=== PATIENT | male | born 1950 | race Caucasian/White ===

== ENCOUNTER 2018-10-17 06:39 | Inpatient (IN) | payer MEDICARE, OTHER ==
--- NOTE | 2018-10-17 06:58 | ED ---
Psychiatric Complaint - HPI Summary HPI Summary: Pt. is a 68 y.o male who presents to the ER for a psychiatric evaluation. Pt. called 911 this morning stating he wanted to kill himself. Pt. states he then realized it was a bad idea. A gun reportedly found at pt.'s house per police. Pt. denies mental health hx. Pt. states he has been having a lot of health issues lately. Stating he recently had a heart stent placed and a carotid endarterectomy. Sxs are severe in severity. No current modifying factors. Pt. had already written a suicide note to his family. - History Of Current Complaint Chief Complaint: EDMentalHealth Time Seen by Provider: 10/17/18 06:55 Hx Obtained From: Patient, Other: - police - Allergies/Home Medications Allergies/Adverse Reactions: Allergies Allergy/AdvReac Type Severity Reaction Status Date / Time No Known Allergies Allergy Verified 10/17/18 06:44 PMH/Surg Hx/FS Hx/Imm Hx Previously Healthy: Yes Infectious Disease History: No Infectious Disease History: Denies: Traveled Outside the [place] in Last 30 Days - Social History Occupation: Retired Lives: With Family Review of Systems Constitutional: Negative Cardiovascular: Negative Respiratory: Negative Neurological: Negative Positive: Depressed All Other Systems Reviewed And Are Negative: Yes Physical Exam Triage Information Reviewed: Yes Vital Signs On Initial Exam: Initial Vitals Temp Pulse Resp BP Pulse Ox 97.9 F 68 16 150/92 97 10/17/18 06:40 10/17/18 06:40 10/17/18 06:40 10/17/18 06:40 10/17/18 06:40 Vital Signs Reviewed: Yes Appearance: Positive: Well-Appearing - Pt. sitting in chair in NAD. Poor eye contact. Skin: Positive: Warm, Dry Head/Face: Positive: Normal Head/Face Inspection Eyes: Positive: Normal, EOMI Neck: Positive: Supple Musculoskeletal: Positive: Normal, Strength/ROM Intact Neurological: Positive: Normal, Alert, Oriented to Person Place, Time, CN Intact II-III Psychiatric: Positive: Affect/Mood Appropriate Diagnostics - Vital Signs Vital Signs Temp Pulse Resp BP Pulse Ox 10/17/18 06:40 97.9 F 68 16 150/92 97 - Laboratory Result Diagrams: 10/17/18 07:07 10/17/18 07:07 Lab Statement: Any lab studies that have been ordered have been reviewed, and results considered in the medical decision making process. Course/Dx - Course Course Of Treatment: Pt. presenting with SI. Pt. medically cleared. Pt. evalauated by and psychiatry consulted. Pt. will be admitted to the [facility] for further care and evaluation. - Differential Dx/Clinical Impression Differential Diagnosis/HQI/PQRI: Positive: Depression, Suicidal Ideation Provider Diagnosis: Depression Discharge - Sign-Out/Discharge Documenting (check all that apply): Patient Departure Patient Received Moderate/Deep Sedation with Procedure: No - Discharge Plan Condition: Stable [facility] [place]errals: No Primary Care Phys,NOPCP [Primary Care Provider] - - Billing Disposition and Condition Condition: STABLE Disposition: Psychiatric Facility [facility] [place]
[2018-10-17 07:20] LABS: ABS Basophils 0.1 10^3/ul (0-0.2); ABS Eosinophils 0.2 10^3/ul (0-0.6); ABS Lymphocytes 1.1 10^3/ul (1.0-4.8); ABS Monocytes 0.5 10^3/ul (0-0.8); Eosinophil % 3.6 %; Hematocrit 43 % (42-52); Hemoglobin 14.7 g/dL (14.0-18.0); Lymphocyte % 18.4 %; Mean Corpuscular HGB Conc 34 g/dL (31-36); Mean Corpuscular Hemoglobin 31 pg (27-31); Mean Corpuscular Volume 90 fL (80-94); Mean Platelet Volume 7.1 fL (7.4-10.4); Nucleated Red Blood Cells % 0.1; Platelet Count 326 10^3/uL (150-450); Red Blood Count 4.72 10^6 /uL (4.18-5.48); Red Cell Distribution Width 15 % (10-15); White Blood Count 5.8 10^3/uL (3.5-10.8)
[2018-10-17 07:32] LABS: ALT 33 U/L (7-52); AST 33 U/L (13-39); Albumin 4.7 g/dL (3.2-5.2); Albumin/Globulin Ratio 1.9 (1-3); Alkaline Phosphatase 88 U/L (34-104); Anion Gap 9 mmol/L (2-11); BUN/Creatinine Ratio 16.9 (8-20); Blood Urea Nitrogen 14 mg/dL (6-24); CO2 Carbon Dioxide 24 mmol/L (22-32); Calcium 9.2 mg/dL (8.6-10.3); Chloride 98 mmol/L (101-111); EGFR African American 111.5 (>60); EGFR Non-African American 92.1 (>60); Globulin 2.5 g/dL (2-4); Glucose 128 mg/dL (70-100); Potassium 3.9 mmol/L (3.5-5.0); Sodium 131 mmol/L (135-145); Total Protein 7.2 g/dL (6.4-8.9)
[2018-10-17 08:11] LABS: Urine Appearance Cloudy; Urine Bilirubin Negative (Negative); Urine Blood Negative (Negative); Urine Color Yellow; Urine Glucose Negative (Negative); Urine Ketones Negative (Negative); Urine Nitrite Negative (Negative); Urine Protein Negative (Negative); Urine Urobilinogen Negative (Negative)
[2018-10-17 08:20] LABS: Alcohol < 10 mg/dL (<10); Salicylate < 2.50 mg/dL (<30)
[2018-10-17 08:27] LABS: Urine Benzodiazepine Screen None Detected (None Detect); Urine Opiates Screen None Detected (None Detect)
[2018-10-17 08:35] LABS: TSH (Thyroid Stimulating Horm) 2.42 mcIU/mL (0.34-5.60)
[2018-10-17] MEDS ORDERED: Al Hydrox/Mg Hydrox/Simet LIQ* 30 ML UDC PO PRN (10:52)
[2018-10-17 11:45] LABS: Acetaminophen < 15 mcg/mL
[2018-10-17] MEDS: Saline NASAL SPRAY 0.65%* BTL BOTH NARES PRN (15:41)
[2018-10-17] MEDS: Atorvastatin* 80 MG TAB PO SCH (17:42)
--- NOTE | 2018-10-17 18:24 | HP ---
PSYCHIATRIC HISTORY AND PHYSICAL: DATE OF ADMISSION: 10/17/18 JUSTIFICATION FOR ADMISSION: The patient is in need of 24-hour supervision and care secondary to giacomo cidal ideations. CHIEF COMPLAINT: "The only reason I'm here is that the deputies had to fill certain criteria and charo ing me." HISTORY OF PRESENT ILLNESS: The patient is a 68-year-old white male with a recent history of myocardial infarction in January 2018, as well as several other medical comorbidities, who was brou ght to the hospital on a 9.41 involuntary status by the [facility]'s Department followin g a 911 call placed by the patient to the authorities stating that he had a gun and the intention of ending his own life. Prior to the Nursing Coordinator's arrival at his home, he allegedly tried to call them maximus k and abort their visit, saying that he had reconsidered and was no longer suicidal. However, they w ere already en route and took him to the hospital. After arriving, the patient's Britni reported to the crisis driver education road instructor that the patient has been talking about suicidal ideas for about a week now a nd she feels that he is depressed. She was trying to recommend that he come to his doctor to talk ab out it. She notes that he has several active medical problems and that his quality of life has dimin ished since his myocardial infarction in January 2018. When I met with the patient, he feels that it is a mistake to admit him here. He states that he has totally reconsidered suicide and decided that it is not for him. He does admit to having a gun at home which is a pistol; however, the Nursing Coordinator con fiscated it during the visit to his house. He also acknowledges being suicidal for a week, feeling m ostly that his medical problems are unlikely to improve. He had left a detailed suicide note to his family indicating his reasoning for wanting to end his life and again it is mostly related to his med ical problems. Back in January 2018, during his heart attack, he was hospitalized at [place]. Subs equent to that, he has also been hospitalized for bleeding ulcers as well as bilateral carotid endart erectomy procedures. The patient is tired of going to the hospital and states that he cannot do many of the things that he used to enjoy. One particularly stressful medical issue is that he has experi enced right eye blindness, which has forced him to rely on his left eye which causes fatigue. For th is reason, he is no longer able to drive long distances or shoot his handgun at the range accurately. Interestingly, the patient denies neurovegetative symptoms of depression with the exception of guil t. He does indicate that he is guilty for being here, but he denied sleep disturbance, anhedonia, en ergy problems, concentration loss, appetite disturbance, or psychomotor agitation or retardation. He is insisting that his suicidal ideation has resolved at this time. The patient denies any history of psychosis or korin. PSYCHIATRIC HISTORY: The patient has no prior history of suicidal ideations or attempts. He has no prior history of treatment for depression, counseling, or psychiatric medications, and no psychiatric hospitalizations. He denies a history of abuse or neglect while growing up, and he denies a history of traumatic brain injury. SUBSTANCE ABUSE HISTORY: The patient quit tobacco in January 2018. However, previous to this he alberto d a 40-year history of 1 pack per day. He also quit alcohol in January 2018, and he previously dran k 4 to 6 beers per day. He denies any history of DWIs or need for rehabilitation. MEDICAL HISTORY: Extensive and is significant for coronary artery disease with stenting and myocardi al infarction in January 2018. He has had bleeding peptic ulcers, bilateral carotid endarterectomy, epistaxis, hypertension, gastroesophageal reflux disease, hyperlipidemia, and right eye blindness. MEDICATIONS: Include: 1. Plavix 75 mg p.o. daily. 2. Pantoprazole 40 mg twice daily. 3. Aspirin 81 mg daily. 4. Metoprolol succinate 25 mg daily. 5. Losartan 50 mg daily. 6. Amlodipine 10 mg daily. 7. Atorvastatin 80 mg nightly. 8. Saline nasal spray as needed for congestion. 9. Zyrtec 10 mg daily. 10. Afrin nasal decongestant up to 2 times a day as needed for nasal congestion. FAMILY HISTORY: The patient's mother had severe depression and 1 suicide attempt via overdose, for w hich she was psychiatrically hospitalized. SOCIAL HISTORY: The patient was born in [facility] to a father who was in the . He was raised in [place] in an intact family. He was 1 of 2 children, having an older brother who is 3 years older and still alive. The patient lives with his in [place]. They share a 42-yea r-old son and a 50- year-old daughter as well as 2 grand kids. The patient has been twice. H is first marriage ended in a divorce after only 1 year. 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 Hobbies include puzzles, reading the paper, a nd doing Sudoku. 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 For 38 years, he worked in the [employer] and now has a pension as well as Social Security income. He is not cheondoism nor spiritual, although he believes in God. He has no significant history of legal problems. REVIEW OF SYSTEMS: The patient is endorsing some double vision, but denies headache. He also denies sore throat, cough, chest pain, difficulty breathing. He denies abdominal pain, nausea, vomiting, d iarrhea, or constipation, although he has had some recent heartburn. He denies difficulty ambulatin g, enlarged lymph nodes, fever, rashes, changes in weight. PHYSICAL EXAMINATION VITAL SIGNS: Blood pressure 138/77, heart rate is 70, respiratory rate 18, temperature 97.9 degrees Fahrenheit, oxygen saturations are 100% on room air. HEENT: Head is normocephalic, atraumatic. NECK: Supple. CHEST: Clear to auscultation bilaterally. CARDIAC: Exam reveals normal heart sounds. ABDOMEN: Soft and nontender. MUSCULOSKELETAL: Reveals no sign of edema. SKIN: Warm and dry. NEUROLOGICAL: He is grossly intact with no focal deficits. LAB DATA: Complete blood count is within normal limits. Complete metabolic panel shows glucose sli ghtly elevated at 128. Urinalysis is within normal limits. Urine drug screen is negative for all mistry bstances tested. MENTAL STATUS EXAM: The patient is an aging bearded white male who is clean, dressed in street cloth ing. He is clean, well groomed, makes fairly good eye contact. Speech has a normal rate, tone, and volume. Mood would appear to be euthymic with full affect. Thought process is linear, goal directed . Thought content is significant for his desire to be discharged from the hospital. He is denying s uicidal or homicidal ideations. Insight and judgment are limited given his refusal to sign into the hospital despite his suicide note. Cognitively, he is awake and alert with what would appear to be a n average intellect. DIAGNOSES: [place] I: Adjustment disorder with depressed mood. Alcohol use disorder, in sustained jose ssion. [place] II: Deferred. IMPRESSION: The patient is a 68-year-old white male with no psychiatric history, who suffer ed a heart attack in January 2018 as well as multiple other medical problems subsequently, who was b rought to the hospital via the police on a 9.41 legal status after calling 911 and threatening suicid e. He had a gun in his possession as well as a suicide note and although he has retracted his suicid al sentiments it was felt that he was not safe for discharge, and he is therefore admitted on an invo luntary status. At this time, the patient is denying neurovegetative symptoms of depression and so I do not believe that antidepressant therapy is warranted. However, we will need further collateral i nformation from his outpatient providers as well as his in order to stratify his risk. PLAN: The patient is admitted to the adult behavioral health unit and placed on q. 15 minute checks for his own safety. We will observe him for safety and encourage him to participate in all milieu ac tivities. We will be reaching out to his for collateral information and we will try to set him up with appropriate outpatient services. I understand that the weapon has been removed from his poss ession already. [id number]/[facility] #: [id number]
[2018-10-17] MEDS: Oxymetazoline 0.05% NASAL SPR* 15 ML BTL BOTH NARES PRN (21:08)
[2018-10-17] MEDS: Zolpidem TAB* 5 MG PO PRN (21:15)
[2018-10-17] MEDS: Pantoprazole TAB * 40 MG TAB PO SCH (21:15)
[2018-10-17] MEDS: Cetirizine* 10 MG TAB PO SCH (21:15)
[2018-10-17] MEDS: Losartan TAB* 25 MG PO SCH (21:15)
[2018-10-17] MEDS: Clopidogrel TAB* 75 MG PO SCH (21:45)
[2018-10-18] MEDS: Acetaminophen TAB* 325 MG PO PRN (05:40)
[2018-10-18 07:45] LABS: HDL Cholesterol 76.2 mg/dL
[2018-10-18] MEDS: Metoprolol Succinate XL TAB* 25 MG PO SCH (08:41)
[2018-10-18] MEDS: amLODIPine TAB* 5 MG PO SCH (08:41)
[2018-10-18] MEDS: Aspirin EC TAB* 81 MG TAB.EC PO SCH (08:42)
[2018-10-18] MEDS: Pantoprazole TAB * 40 MG TAB PO SCH ×2 (08:42→21:00)
[2018-10-18] MEDS: Saline NASAL SPRAY 0.65%* BTL BOTH NARES PRN ×2 (09:56→15:56)
[2018-10-18] MEDS: Atorvastatin* 80 MG TAB PO SCH (18:42)
[2018-10-18] MEDS: Oxymetazoline 0.05% NASAL SPR* 15 ML BTL BOTH NARES PRN (20:42)
[2018-10-18] MEDS: Cetirizine* 10 MG TAB PO SCH (21:00)
[2018-10-18] MEDS: Clopidogrel TAB* 75 MG PO SCH (21:01)
[2018-10-18] MEDS: Losartan TAB* 25 MG PO SCH (21:01)
[2018-10-18] MEDS: Zolpidem TAB* 5 MG PO PRN (21:03)
[2018-10-19] MEDS: Acetaminophen TAB* 325 MG PO PRN (02:49)
[2018-10-19] MEDS: hydrOXYzine HCL TAB* 50 MG PO PRN (02:49)
[2018-10-19] MEDS: amLODIPine TAB* 5 MG PO SCH (07:46)
[2018-10-19] MEDS: Saline NASAL SPRAY 0.65%* BTL BOTH NARES PRN ×2 (07:46→18:54)
[2018-10-19] MEDS: Metoprolol Succinate XL TAB* 25 MG PO SCH (07:46)
[2018-10-19] MEDS: Aspirin EC TAB* 81 MG TAB.EC PO SCH (07:46)
[2018-10-19] MEDS: Pantoprazole TAB * 40 MG TAB PO SCH ×2 (07:46→21:25)
--- NOTE | 2018-10-19 12:45 | PN ---
Subjective - Subjective Date of Service: 10/19/18 Service Type: 76068 Hosp care 15 min low complexity Subjective: Devi continues to deny SI. He acknowledges that he has many health problems and fears that they may get worse but he no longer thinks of suicide as an answer. "I have two kids and two grandkids. I think it would hurt them." He is agreeable with having his Britni come to the unit for a family meeting. Staff indicates that he is needy at times but adherent with milieu expectations. Objective - General Observations Appearance: Well Groomed Appears Stated Age: Yes Stature: WNL Posture: WNL Eye Contact: Average Behavior/Activity: WNL - Interaction Observations Attitude Towards Examiner: Cooperative Stated Mood: Euthymic Affect: Full Speech Pattern/Tone: Clear, Appropriate, Normal Volume Thought Process: Coherent Perception: WNL Thought Content: WNL Hallucination Type: None Delusion Type: None - Cognitive Function Orientation: A&O x 4 Level of Consciousness: Awake Cognition: WNL Estimated Intelligence: Normal Insight: WNL Judgment Within Normal Limits: Yes - Medication Compliance Cooperative with Inpatient Medication Regimen: Yes - Group Participation Participates in Group Activities: Yes Assessment - Assessment Merits Inpatient Hospitalization: For Immediate Safety, For Stabilization Inpatient DSM-V Dx: F43.21 Clinical Impression: 68 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 BSU: Problem List - Patient Problems (1) Adjustment disorder with depressed mood Current Visit: Yes Status: Acute Priority: High Code(s): F43.21 - ADJUSTMENT DISORDER WITH DEPRESSED MOOD SNOMED Code(s): 73472342 Plan - Plan Treatment Plan: Name: DEVI ROSENBERG Birthdate: 1950 [id number] The patient meets criteria for adjustment disorder and the main stressor is his medical situation, which has been deteriorating. He denies neurovegetative symptoms and would not likely benefit from antidepressant therapy. His will be coming in for a therapeutic family meeting in order to discuss safety considerations and plan for discharge. Continued Medication Management: Consider Medication Medications: Current Medications Acetaminophen (Tylenol Tab*) 650 mg PO Q4H PRN PRN Reason: for pain; or Temp >101 F Last Admin: 10/19/18 02:49 Dose: 650 mg Al Hydrox/Mg Hydrox/Simethicone (Maalox Plus*) 30 ml PO Q4H PRN PRN Reason: INDIGESTION Amlodipine Besylate (Norvasc Tab*) 10 mg PO DAILY [facility] Last Admin: 10/19/18 07:46 Dose: 10 mg Aspirin (Aspirin Ec Tab*) 81 mg PO DAILY [facility] Last Admin: 10/19/18 07:46 Dose: 81 mg Atorvastatin Calcium (Lipitor*) 80 mg PO 1700 [facility] Last Admin: 10/18/18 18:42 Dose: 80 mg Cetirizine HCl (Zyrtec*) 10 mg PO BEDTIME [facility] Last Admin: 10/18/18 21:00 Dose: 10 mg Clopidogrel Bisulfate (Plavix Tab*) 75 mg PO BEDTIME [facility] Last Admin: 10/18/18 21:01 Dose: Not Given Hydroxyzine HCl (Atarax Tab*) 50 mg PO Q6H PRN PRN Reason: anxiety Last Admin: 10/19/18 02:49 Dose: 50 mg Losartan Potassium (Cozaar Tab*) 50 mg PO BEDTIME [facility] Last Admin: 10/18/18 21:01 Dose: 50 mg Metoprolol Succinate (Toprol Xl Tab*) 25 mg PO DAILY [facility] Last Admin: 10/19/18 07:46 Dose: 25 mg Oxymetazoline HCl (Afrin 0.05% Nasal [place]*) 2 spray BOTH NARES BID PRN PRN Reason: CONGESTION Last Admin: 10/18/18 20:42 Dose: 2 spr Pantoprazole Sodium (Protonix Tab*) 40 mg PO BID [facility] Last Admin: 10/19/18 07:46 Dose: 40 mg Sodium Chloride (Sodium Chloride 0.65% Nasal [place]*) 1 spray BOTH NARES Q4H PRN PRN Reason: dry mucosa Last Admin: 10/19/18 07:46 Dose: 1 spray Zolpidem Tartrate (Ambien Tab*) 5 mg PO BEDTIME PRN PRN Reason: INSOMNIA Last Admin: 10/18/18 21:03 Dose: 5 mg - Discharge Plan Discharge Plan: Inpatient Hospitalization
[2018-10-19] MEDS: Atorvastatin* 80 MG TAB PO SCH (18:54)
[2018-10-19] MEDS: Oxymetazoline 0.05% NASAL SPR* 15 ML BTL BOTH NARES PRN (21:06)
[2018-10-19] MEDS: Losartan TAB* 25 MG PO SCH (21:25)
[2018-10-19] MEDS: Zolpidem TAB* 5 MG PO PRN (21:25)
[2018-10-19] MEDS: Cetirizine* 10 MG TAB PO SCH (21:25)
[2018-10-19] MEDS: Clopidogrel TAB* 75 MG PO SCH (21:25)
[2018-10-20] MEDS: Acetaminophen TAB* 325 MG PO PRN (03:44)
[2018-10-20] MEDS: hydrOXYzine HCL TAB* 50 MG PO PRN (03:45)
[2018-10-20 09:10] VITALS: BP 115/64
[2018-10-20] MEDS: amLODIPine TAB* 5 MG PO SCH (09:12)
[2018-10-20] MEDS: Aspirin EC TAB* 81 MG TAB.EC PO SCH (09:12)
[2018-10-20] MEDS: Pantoprazole TAB * 40 MG TAB PO SCH (09:12)
[2018-10-20] MEDS: Metoprolol Succinate XL TAB* 25 MG PO SCH (09:12)
--- NOTE | 2018-10-20 11:40 | PN ---
BSU: Group Therapy Note - Service Type Service Type: [id number] Group Psychotherapy - CBT group note: Adriel was attentive and participatory in programming this morning, engaging in discussion in a spontaneous and earnest fashion. He denies having any concerns regarding safety issues, and expressed an interest in discharge to return home. He was generally attentive to peer discussion, and displayed euythmic affect.
--- NOTE | 2018-10-20 14:05 | DS ---
CC: Won Wei NP in [place]* DISCHARGE SUMMARY: DATE OF ADMISSION: 10/17/18 DATE OF DISCHARGE: 10/20/18 PRIMARY CARE PROVIDER: Won Wei NP in [place]. DISCHARGE DIAGNOSES: [place] I: Adjustment disorder with depressed mood; alcohol use disorder, in sustained remission. [place] II: Deferred. CONDITION AT THE TIME OF DISCHARGE: Improved. The patient has steadfastly denied any further suicidal ideations. He has been safe on all checks. He has been appropriately participating in milieu treatment including group therapies, socializing with peers and receiving visits with family, just had a therapeutic family meeting between the patient and his , Margoth and his spouse is agreeable with the discharge plan, in fact she will be driving him home this afternoon with follow-up care plan for [facility]. The patient is agreeable with receiving counseling and he is appropriately requesting discharge to a less restricted setting. It should be noted that the firearm that is registered and that had been in the patient's possession was removed by the [facility]'s Department and remains in police possession. MENTAL STATUS EXAM AT THE TIME OF DISCHARGE: The patient is an aging bearded white male with greying hair. He was clean, well groomed, dressed in a red shirt and jeans. He makes good eye contact. His speech has a normal rate, tone , and volume. Mood is euthymic with full affect. Thought process is linear, goal directed. Thought content is significant for his desire to be discharged from the hospital. He is denying suicidal or homicidal thoughts. He is denying auditory or visual hallucinations. Insight and judgment are fair given his willingness to follow up with outpatient mental health treatment in the community. Cognitively, he is awake and alert with what would appear to be an average intellect. DISCHARGE INSTRUCTIONS TO THE PATIENT: Part A: Medications: He is takin. Norvasc 10 mg daily. 2. Aspirin 81 mg daily. 3. Lipitor 80 mg nightly. 4. Zyrtec 10 mg nightly. 5. Plavix 75 mg daily. 6. Cozaar 50 mg at bedtime. 7. Toprol-XL 25 mg daily. 8. Afrin nasal spray 2 sprays to both nares b.i.d. 9. Protonix 40 mg twice daily. 10. Sodium chloride 0.65% nasal spray 1 spray to both nares every 4 hours as needed for congestion. 11. Ambien 5 mg p.o. q.h.s. Part B: Diet is regular. Part C: Activities as tolerated. The patient is a nonsmoker. There are no laboratory or diagnostic studies pending at the time of discharge. Part D: Followup care: The patient will have an intake at the [facility] in [place] within 1 week of discharge. In addition, he is being referred back to the [facility] in [place], [place]. Part E: Substance abuse followup is nonapplicable. Part F: Disposition: The patient is heading home, to his house in [place], [place]. HOSPITAL COURSE: Part A: Reason for admission: The patient is a 68-year-old white male with a history of myocardial infarction in January 2018 as well as several other medical comorbidities, who was brought to the hospital on a 9.41 involuntary status by the [facility]'s Department following a 911 call placed by the patient to the authorities stating that he had a gun with the intention of ending his own life. Prior to the Head Waiter/Waitress's arrival at his home, he allegedly tried to call them back and abort their visit, saying that he had reconsidered and was no longer suicidal; however, they were already en route and took him to the hospital. After arriving here, the patient's , Britni, reported to the crisis mathematics education professor that the patient talked to her about suicidal ideation approximately 1 week ago and she feels that he is depressed. She was trying to recommend that he come to his doctor to talk about it. She noted that he has had several active medical problems and that his quality of life has diminished significantly since the myocardial infarction in January 2018. When I met with the patient, he felt that it was a mistake to admit him. He stated that he had totally reconsidered suicide and decided that it was not for him. He did admit to having a gun at home which was a pistol; however, the Head Waiter/Waitress confiscated it during the visit to his house. He also acknowledges being suicidal for a week, feeling mostly that his medical problems were unlikely to improve. In fact, he left a detailed suicide note for his family indicating his reasoning for wanting to end his life, and again this was mostly related to his medical problems. Back in January 2018, during his heart attack , he was hospitalized at [place]. 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 The patient is tired of going to the hospital and states that he cannot do many of the things that he used to enjoy. For example, he is no longer able to drive long distances or shoot his handgun at the shooting range. Interestingly, the patient denies any neurovegetative symptoms of depression with the exception of guilt. He does indicate that he feels guilty for being here, however, he denied sleep disturbance, anhedonia, energy problems, concentration loss, appetite disturbance, psychomotor agitation or retardation. He is insisting that his suicidal ideations had resolved at the time of his admission. He denied any history of psychosis or korin. Part B. Psychiatric treatment rendered: The patient was admitted to the Adult Behavioral Health Unit where he was placed on q.15-minute checks for his own safety. We did resume all of his outpatient medical medications which he took faithfully. We did consider use of antidepressive therapy; however, in the absence of neurovegetative symptoms, it was felt that this was not warranted. Instead, we talked to him about receiving counseling due to the fact that much of what he is dealing with are related to sense of loss from his decreased medical functioning. The patient indicated that he was willing to pursue counseling at [facility] and he was referred to that clinic prior to discharge. While he was here, he was adherent with all milieu expectations, was fairly social with peers, going to groups. We had a therapeutic family meeting with his in which she expressed being comfortable taking him home. They will also be following up at the [facility] in [place], [place]. At this time, I see no further justification for continued involuntary treatment and we are discharging Adriel to the outpatient setting. We certainly wish him the best for safe and healthy future. [id number]/[facility] #: [id number] MTDKristan
== END 2018-10-20 13:30 | disposition home or self-care (01) | DRG 881 ==
LOC: ED 06:39 → BSU 11:11
PROVIDERS: ADMIT Psychiatry & Neurology Psychiatry; ATTEND Psychiatry & Neurology Psychiatry
DX: F43.21 Adjustment disorder with depressed mood (principal); R45.851 Suicidal ideations; H54.40 Blindness, one eye, unspecified eye; I25.10 Atherosclerotic heart disease of native coronary artery without angina pectoris; I10 Essential (primary) hypertension; K21.9 Gastro-esophageal reflux disease without esophagitis; E78.5 Hyperlipidemia, unspecified; F10.21 Alcohol dependence, in remission; I25.2 Old myocardial infarction; Z87.891 Personal history of nicotine dependence; Z95.5 Presence of coronary angioplasty implant and graft; Z79.02 Long term (current) use of antithrombotics/antiplatelets; Z79.82 Long term (current) use of aspirin; Z79.899 Other long term (current) drug therapy; Z81.8 Family history of other mental and behavioral disorders
CPT/HCPCS: 36415; 80053; 80061; 80307; 80320; 80329; 81003; 83036; 84443; 85025; 90853; 99222; 99231; 99238; 99285; A9270-GY; G0480